=== PATIENT | male | born 1935 | race Caucasian/White ===

== ENCOUNTER 2016-09-17 08:50 | Inpatient (IN) | payer OTHER, BC ==
[~2016-09-17] VITALS: Ht 177.8 cm; Wt 77.1 kg
--- NOTE | ~2016-09-17 | EKG ---
[address] [address] ELECTROCARDIOGRAM REPORT Name: MARIAM BOYCE Room #: 306-P ADM IN M.R.#: [id number] Admission: 09/17/16 Attend Phys: Megan Pham Discharge: Date of : 33 Report #: [id number] THIS REPORT FOR: //name// [facility] ED Test Date: 2016-09-17 Test Time: 09:04:44 Pat Name: MARIAM BOYCE Department: Room: 306 P Gender: M [place] Attendant: luis m banks : 1935 Requested By: Meagn Pham Order Number: [id number] MD: Jakub Foote Measurements Intervals [place] Rate: 96 P: 44 LA: 198 QRS: 33 QRSD: 76 T: 103 QT: 385 QTc: 487 Interpretive Statements Sinus rhythm Abnormal R-wave progression, early transition Borderline abnrm T, anterolateral leads Electronically Signed On 09-17-2016 15:17:59 [employer] by Jakub Foote [email or web address] <ELECTRONICALLY SIGNED> By: Jakub Foote MD 09/17/16 1517 3 3 Jakub Foote MD /CHELLY
[2016-09-17 08:51] VITALS: BP 164/77
[2016-09-17] MEDS ORDERED: ASPIR 8181 MG PO (08:58)
[2016-09-17] MEDS ORDERED: GLIPIZIDE 10 MG10 MG PO (08:59)
[2016-09-17] MEDS ORDERED: METFORMIN HCL500 MG PO (08:59)
[2016-09-17] MEDS ORDERED: FLOMAX0.4 MG PO (08:59)
[2016-09-17] MEDS ORDERED: COUMADIN 5 MG TA5 M1 PO (08:59)
[2016-09-17] MEDS ORDERED: SIMVASTATIN40 MG PO (09:00)
[2016-09-17 09:11] LABS: HEMATOCRIT 41.7 % (42.0-52.0); HEMOGLOBIN 14.1 gm/dL (14.0-18.0); MCH 28.7 pg (26.0-34.0); MCHC 33.9 % (28.0-37.0); MCV 84.6 fL (80.0-100.0); PLATELET COUNT 148 thou/uL (150-400); RBC 4.93 mil/uL (4.50-6.00); RDW 15.5 % (10.5-14.5); WBC 6.8 thou/uL (4.0-11.0)
[2016-09-17 09:14] LABS: MANUAL DIFF YES
[2016-09-17 09:24] LABS: CALCIUM 8.3 mg/dL (8.5-10.1); CREATININE 1.3 mg/dL (0.6-1.3); POTASSIUM 4.2 mmol/L (3.5-5.1)
[2016-09-17 09:30] LABS: ALBUMIN 3.6 g/dL (3.4-5.0); TOTAL BILIRUBIN 1.2 mg/dL (<0.1-1.0); TOTAL PROTEIN 7.3 g/dL (6.4-8.2)
[2016-09-17 09:35] LABS: ABSOLUTE NEUTROPHILS 5.8 thou/uL (1.4-8.2); TOTAL CELL COUNT 100
[2016-09-17 09:54] LABS: URINE BILIRUBIN NEGATIVE (Negative); URINE BLOOD 3+ (Negative); URINE COLOR YELLOW; URINE GLUCOSE-RANDOM* NEGATIVE (Negative); URINE KETONES 1+ (Negative); URINE NITRITE NEGATIVE (Negative); URINE PROTEIN (DIPSTICK) 1+ (Negative); URINE SPECIFIC GRAVITY >= 1.030 (1.003-1.035); URINE UROBILINOGEN 0.2 E.U./dl (0.2-1.0)
[2016-09-17 10:01] LABS: SQUAMOUS None Seen /LPF (0-3); URINE WBC 0-5 Rare /HPF (0-5)
[2016-09-17 10:02] LABS: AMORPHOUS URATES Moderate /LPF (None Seen); CASTS None Seen /LPF (None Seen); URINE RBC 3-10 Few /HPF (0-2)
[2016-09-17 10:08] LABS: APTT 34.5 Seconds (24.5-32.8); INR 1.8; PROTIME 18.4 Seconds (9.3-11.4)
[2016-09-17 10:27] LABS: CK-MB MASS 2.6 ng/mL (<0.5-3.6)
[2016-09-17 10:51] VITALS: BP 123/60
[2016-09-17 11:23] VITALS: BP 122/61
[2016-09-17 16:00] VITALS: BP 137/63
[2016-09-17 20:06] VITALS: BP 136/68
[2016-09-17 23:34] VITALS: BP 134/68
[2016-09-18 04:33] VITALS: BP 114/61
[2016-09-18 06:35] LABS: HEMOGLOBIN 12.5 gm/dL (14.0-18.0); MCH 28.3 pg (26.0-34.0); MCHC 32.8 % (28.0-37.0); MCV 86.3 fL (80.0-100.0); RBC 4.4 mil/uL (4.50-6.00); WBC 8.8 thou/uL (4.0-11.0)
[2016-09-18 06:54] LABS: INR 1.6; PROTIME 16.7 Seconds (9.3-11.4)
[2016-09-18 07:27] VITALS: BP 109/60
[2016-09-18 11:49] VITALS: BP 122/61
[2016-09-18 20:30] VITALS: BP 114/66
[2016-09-19 03:55] VITALS: BP 100/60
[2016-09-19 05:47] LABS: ALBUMIN 2.8 g/dL (3.4-5.0); CALCIUM 7.8 mg/dL (8.5-10.1); CREATININE 1.1 mg/dL (0.6-1.3); PHOSPHORUS 2.2 mg/dL (2.5-4.9); POTASSIUM 4.2 mmol/L (3.5-5.1)
[2016-09-19 07:50] VITALS: BP 141/77
[2016-09-19] MEDS ORDERED: TAMIFLU30 MG PO (09:16)
[2016-09-19] MEDS ORDERED: LEVAQUIN 250 M250 MG PO (09:21)
[2016-09-19 15:20] VITALS: BP 133/79
[2016-09-19 19:34] VITALS: BP 131/77
[2016-09-20 05:34] VITALS: BP 1441/89
[2016-09-20 08:49] VITALS: BP 146/86
== END 2016-09-20 13:13 | disposition short-term general hospital (02) | DRG 871 ==
LOC: ER 08:50 → EROBS 09:56 → 3N 09:56
PROVIDERS: Emergency Medicine; Hospitalist
DX: A41.9 Sepsis, unspecified organism (principal); J09.X1 Influenza due to identified novel influenza A virus with pneumonia; E11.9 Type 2 diabetes mellitus without complications; M19.90 Unspecified osteoarthritis, unspecified site; Z79.899 Other long term (current) drug therapy; Z79.82 Long term (current) use of aspirin; Z79.01 Long term (current) use of anticoagulants
CPT/HCPCS: 10094

== ENCOUNTER 2017-09-07 12:26 | Emergency (ER) | payer OTHER, BC ==
[~2017-09-07] VITALS: Ht 188 cm; Wt 86.2 kg
[~2017-09-07 12:26] MED LIST: ASPIR 8181 MG PO; COUMADIN 5 MG TA5 M1 PO; FLOMAX0.4 MG PO; GLIPIZIDE 10 MG10 MG PO; LEVAQUIN 250 M250 MG PO; METFORMIN HCL500 MG PO; SIMVASTATIN40 MG PO; TAMIFLU30 MG PO
[2017-09-07 14:38] LABS: ABSOLUTE NEUTROPHILS 4.4 thou/uL (1.4-8.2); BASOPHILS 0.9 % (0.0-2.0); HEMATOCRIT 43.5 % (42.0-52.0); HEMOGLOBIN 14.8 gm/dL (14.0-18.0); LYMPHOCYTES 27.1 % (24.0-44.0); MCHC 34.1 g/dL (28.0-37.0); MONOCYTES 7.8 % (1.0-8.0); PLATELET COUNT 235 thou/uL (150-400); POLYS 62.2 % (36.0-66.0); RBC 5.11 mil/uL (4.50-6.00); RDW 14.4 % (10.5-14.5)
[2017-09-07 14:40] LABS: URINE BILIRUBIN NEGATIVE (Negative); URINE BLOOD 1+ (Negative); URINE CLARITY CLEAR; URINE COLOR YELLOW; URINE GLUCOSE-RANDOM* 2+ (Negative); URINE KETONES NEGATIVE (Negative); URINE LEUKOCYTES-REFLEX NEGATIVE (Negative); URINE NITRITE-REFLEX NEGATIVE (Negative); URINE PROTEIN (DIPSTICK) NEGATIVE (Negative); URINE SPECIFIC GRAVITY >= 1.030 (1.005-1.035); URINE UROBILINOGEN 0.2 E.U./dl (0.2-1.0)
[2017-09-07 14:52] LABS: CALCIUM 8.9 mg/dL (8.5-10.1); CREATININE 1.3 mg/dL (0.7-1.3); POTASSIUM 4.4 mmol/L (3.5-5.1)
[2017-09-07 15:00] LABS: BACTERIA-REFLEX 1-9 Few /HPF (None Seen); CASTS None Seen /LPF (None Seen); MUCUS 4-6 Moderate strn/LPF (None Seen); SQUAMOUS None Seen /LPF (0-3); URINE RBC 3-10 Few /HPF (0-2); URINE WBC-REFLEX 0-5 Rare /HPF (0-5)
[2017-09-07 15:01] LABS: CRYSTALS None Seen /LPF (None Seen)
[2017-09-07] MEDS ORDERED: TESSALON PERLE100 MG PO (15:40)
[2017-09-07 16:06] VITALS: BP 106/71
== END 2017-09-07 16:08 | disposition home or self-care (01) ==
LOC: ER 12:26
PROVIDERS: Emergency Medicine
DX: G93.3 Postviral and related fatigue syndromes (principal); E11.9 Type 2 diabetes mellitus without complications; M19.90 Unspecified osteoarthritis, unspecified site

== ENCOUNTER 2020-10-06 17:30 | Emergency (ER) | payer OTHER, BC ==
[~2020-10-06] VITALS: Ht 188 cm; Wt 84.8 kg
[~2020-10-06 17:30] MED LIST changes: +TESSALON PERLE100 MG PO
[2020-10-06 18:46] LABS: ABSOLUTE NEUTROPHILS 4.2 thou/uL (1.4-8.2); BASOPHILS 0.6 % (0.0-2.0); EOSINOPHILS 2.3 % (0.0-3.0); HEMATOCRIT 40.4 % (42.0-52.0); HEMOGLOBIN 13.2 gm/dL (14.0-18.0); LYMPHOCYTES 21.9 % (24.0-44.0); MCH 28.9 pg (26.0-34.0); MCHC 32.6 g/dL (28.0-37.0); MCV 88.7 fL (80.0-100.0); MONOCYTES 9.5 % (1.0-8.0); PLATELET COUNT 188 thou/uL (150-400); POLYS 65.7 % (36.0-66.0); RBC 4.56 mil/uL (4.50-6.00); RDW 14.4 % (10.5-14.5); WBC 6.4 thou/uL (4.0-11.0)
[2020-10-06 19:02] LABS: CALCIUM 9.2 mg/dL (8.5-10.1); CREATININE 1.5 mg/dL (0.7-1.3); POTASSIUM 3.8 mmol/L (3.5-5.1)
[2020-10-06 19:03] LABS: APTT 29.7 Seconds (24.5-32.8); INR 1.2; PROTIME 12.7 Seconds (9.3-11.4)
[2020-10-06 19:06] LABS: ALBUMIN 3.6 g/dL (3.4-5.0); MAGNESIUM 2.1 mg/dL (1.8-2.4); TOTAL BILIRUBIN 0.5 mg/dL (0.2-1.0); TOTAL PROTEIN 7.2 g/dL (6.4-8.2)
[2020-10-06 20:42] LABS: URINE BILIRUBIN NEGATIVE (Negative); URINE BLOOD TRACE (Negative); URINE CLARITY CLEAR; URINE COLOR YELLOW; URINE GLUCOSE-RANDOM* NEGATIVE (Negative); URINE KETONES NEGATIVE (Negative); URINE LEUKOCYTES-REFLEX NEGATIVE (Negative); URINE NITRITE-REFLEX NEGATIVE (Negative); URINE PROTEIN (DIPSTICK) NEGATIVE (Negative); URINE SPECIFIC GRAVITY >= 1.030 (1.005-1.035); URINE UROBILINOGEN 0.2 E.U./dl (0.2-1.0)
[2020-10-07 00:20] VITALS: BP 116/54
--- NOTE | 2020-10-07 07:18 | EKG ---
[address] [address] [place] [address] ELECTROCARDIOGRAM REPORT Name: MARIMA BOYCE Room #: DEP KATHLEEN Hernandez#: [id number] Admission: 10/06/20 Attend Phys: Discharge: 10/07/20 Date of : 33 Report #: [id number] [facility] ED Test Date: 2020-10-06 Test Time: 19:09:13 Pat Name: MARIAM BOYCE Department: Room: Gender: M Net Lead Developer: emiliano : 1935 Requested By: Conrado Muller Order Number: [id number] MD: Dmitry Gamez Measurements Intervals [place] Rate: 74 P: 58 ND: 217 QRS: -39 QRSD: 87 T: 88 QT: 388 QTc: 431 Interpretive Statements Sinus rhythm Borderline prolonged ND interval Left axis deviation Borderline low voltage, extremity leads Abnormal R-wave progression, early transition Compared to ECG 09/17/2016 09:04:44 Left-axis deviation now present Electronically Signed On 10-07-2020 7:18:06 [employer] by Dmitry Gamez [email or web address] <ELECTRONICALLY SIGNED> By: Dmitry Gamez MD, [facility] 10/07/20717 08 08 Dmitry Gamez MD, FAC /EPI
== END 2020-10-07 00:39 | disposition still patient (30) ==
LOC: ER 17:30
PROVIDERS: Emergency Medicine
DX: G30.9 Alzheimer's disease, unspecified (principal); F02.80 Dementia in other diseases classified elsewhere, unspecified severity, without behavioral disturbance, psychotic disturbance, mood disturbance, and anxiety; F91.1 Conduct disorder, childhood-onset type; E11.9 Type 2 diabetes mellitus without complications; M19.90 Unspecified osteoarthritis, unspecified site; Z20.822 Contact with and (suspected) exposure to COVID-19; Z79.899 Other long term (current) drug therapy; Z79.82 Long term (current) use of aspirin; Z79.01 Long term (current) use of anticoagulants